=== PATIENT | female | born 1940 | race Caucasian/White ===

== ENCOUNTER 2016-09-22 09:55 | Outpatient (CLI) | payer OTHER ==
[2015-06-02 00:17] VITALS: BP 155/72
== END 2016-09-22 10:05 ==
LOC: RAD 09:55
PROVIDERS: ATTEND Family Medicine
DX: M81.0 Age-related osteoporosis without current pathological fracture (principal)
CPT/HCPCS: 77080

== ENCOUNTER 2016-11-24 14:02 | Outpatient (CLI) | payer OTHER ==
[2015-06-02 00:17] VITALS: BP 155/72
[2016-11-24 14:54] LABS: eGFR (African) > 60; eGFR (Non-African) > 60
== END 2016-11-24 14:03 ==
LOC: LAB 14:02
PROVIDERS: ATTEND Family Medicine
DX: E11.9 Type 2 diabetes mellitus without complications (principal)
CPT/HCPCS: 36415; 80053; 83036

== ENCOUNTER 2017-03-24 14:05 | Outpatient (CLI) | payer OTHER ==
[2015-06-02 00:17] VITALS: BP 155/72
[2017-03-24 14:31] LABS: eGFR (African) > 60; eGFR (Non-African) > 60
== END 2017-03-24 14:06 ==
LOC: LABRHC 14:05
PROVIDERS: ATTEND Family Medicine
DX: E11.9 Type 2 diabetes mellitus without complications (principal)
CPT/HCPCS: 36415; 80053; 80061; 82043; 83036

== ENCOUNTER 2017-04-27 13:42 | Emergency (ER) | payer OTHER ==
[2017-04-27 14:09] LABS: BASOPHILS % 0.4 (0.0-1.5); EOSINOPHILS % 1.8 % (0.0-6.8); MEAN CORPUSCULAR HEMOGLOBIN 25.9 pg (28.0-34.0); MEAN CORPUSCULAR VOLUME 81.7 fl (80.0-100.0); MONOCYTES % 4.9 % (0.0-11.0); NEUTROPHILS # 7.8 # k/uL (1.4-7.7)
[2017-04-27 14:43] LABS: eGFR (African) > 60; eGFR (Non-African) > 60
[2017-04-27 14:53] LABS: APPEARANCE,URINE Slightly Cloudy (CLEAR); COLOR,URINE Yellow (YELLOW); OCCULT BLOOD,URINE Negative (NEGATIVE); PH URINE 5.5 (5.0 - 8.0); UROBILINOGEN URINE 0.2 Eu (0.2-1.0)
--- NOTE | 2017-04-27 15:17 | Diagnostic Imaging Report ---
EDMAR YOU (CHRISTINA) - ER [facility] [address] [facility].[address] [address] Report Submission Date: Apr 27, 2017 2:49:31 PM CDT Patient Study Name: ELLA DAVALOS Date: Apr 27, 2017 2:10:33 PM CDT Modality Type: CR Gender: F Description: CHEST : 40 Institution: [facility] Physician: EDMAR YOU (CHRISTINA) - ER Examination: PA and lateral chest. History: Evaluate lung tapia. Comparison exam: None provided. Findings: PA lateral chest demonstrate a normal cardiac silhouette. Minimal tortuosity of the thoracic aorta. Mild haziness in the retrocardiac/posterior sulci region. No effusion. No blunting of the costophrenic margins. Osseous structures are appropriate for age. Impression: Mild retrocardiac infiltrate. No effusion. Electronically signed on Apr 27, 2017 2:49:31 PM CDT by: Tom DAVILA
--- NOTE | 2017-04-27 15:18 | Diagnostic Imaging Report ---
EDMAR YOU (CHRISTINA) - ER [facility] [address] [facility] [address] [address] Report Submission Date: Apr 27, 2017 2:50:31 PM CDT Patient Study Name: ELLA DAVALOS Date: Apr 27, 2017 2:21:34 PM CDT Modality Type: CR Gender: F Description: SHOULDER : 40 Institution: [facility] Physician: EDMAR YOU (CHRISTINA) - ER Examination: Plain film shoulder History: Fall Comparison exams: None provided Findings: 3 views of the shoulder demonstrate normal cortical margins. No evidence for fracture or dislocation. Acromioclavicular joint degenerative changes. No soft tissue abnormality Impression: Acromioclavicular joint degenerative. No acute osseous process. Electronically signed on Apr 27, 2017 2:50:31 PM CDT by: Tom DAVILA
--- NOTE | 2017-04-27 15:31 | ED Physician Documentation ---
Fall - HISTORIAN Historian: patient - HPI Stated Complaint: left shoulder pain from fall and short of breath Chief Complaint: Fall Onset: other (last or Tuesday) Context: tripped r: moderate Associated Symptoms:: no loss of consciousness Location of Pain/Injury: L shoulder Injury to Right Extremity: none Injury to Left Extremity: shoulder Further Comments: yes (77 year old female patient presents with complaint of left shoulder pain, reports falling last or Tuesday. Also reports shortness of breath which started today with sinus drainage and congestion. Denies chest pain, N/V, dysuria.) - ROS CONST: no problems NEURO: denies: dizziness, anxiety, depression, other MS/SKIN/LYMPH: ankle swelling (1+). denies: weakness, numbness, neck pain, back pain, leg swelling, rash, other EYES/ENT: none CVS/RESP: shortness of breath (mild). denies: chest pain, palpitations GI/: denies: problems urinating, nausea, vomiting, other - PAST HX Past History: diabetes Type 2, other (A Fib on Eliquis, Parkinson's) Allergies/Adverse Reactions: Allergies Allergy/AdvReac Type Severity Reaction Status Date / Time No Known Allergies Allergy Verified 04/27/17 14:05 Home Medications: Ambulatory Orders Medication Instructions Recorded Carbidopa/Levodopa [Carbidopa-Levo 1 tab PO DAILY 02/15/15 25-100 mg Odt] Levofloxacin [Levaquin] 500 mg PO DAILY #7 tablet 04/27/17 - SOCIAL HX Smoking History: non-smoker - FAMILY HX Family History: none - VITAL SIGNS Vital Signs: Vital Signs Temp Pulse Resp BP Pulse Ox 99.0 F 76 20 114/69 86 L 04/27/17 13:43 04/27/17 15:13 04/27/17 13:43 04/27/17 13:43 04/27/17 15:13 - REVIEWED ASSESSMENTS Nursing Assessment Reviewed: Yes Vitals Reviewed: Yes Progress - Progress Progress: maxillary and ethmoid sinus tenderness with palpation. Erythema in bilateral turbinates; purulent drainage. ED Results Lab/Radiology - Lab Results Lab Results: Lab Results 04/27/17 04/27/17 04/27/17 14:50 14:00 14:00 WBC RBC Hgb Hct MCV MCH MCHC RDW Plt Count Neut % (Auto) Lymph % (Auto) Holt % (Auto) Eos % (Auto) Baso % (Auto) Neut # (Auto) Lymph # (Auto) Holt # (Auto) Eos # (Auto) Baso # (Auto) Reactive Lymphs % Reactive Lymphs # Sodium 141 mmol/L mmol/L (136-145) Potassium 3.4 mmol/L L mmol/L (3.5-5.0) Chloride 103 mmol/L mmol/L (98-110) Carbon Dioxide 30 mmol/L mmol/L (20-32) BUN 29 mg/dL H mg/dL (10-26) Creatinine 0.7 mg/dL mg/dL (0.4-1.5) Estimated Creat Clear 91 Est GFR ( Amer) > 60 (60 - ) Est GFR (Non-Af Amer) > 60 (60 - ) Glucose 183 mg/dL H mg/dL (70-99) Calcium 9.9 mg/dL mg/dL (8.5-10.5) Total Bilirubin 0.4 mg/dL mg/dL (0.2-1.2) AST 14 U/L U/L (0-41) ALT 6 U/L U/L (0-45) Alkaline Phosphatase 94 U/L U/L (46-116) NT-Pro-B Natriuret Pep 710.1 pg/mL H pg/mL (15.0-450.0) Total Protein 7.2 g/dL g/dL (6.0-8.5) Albumin 4.3 g/dL g/dL (3.0-5.5) Urine Color Yellow (YELLOW) Urine Appearance Slightly cloudy (CLEAR) Urine pH 5.5 (5.0 - 8.0) Ur Specific [place] 1.025 (1.010-1.030) Urine Protein Negative mg/dL mg/dL (NEGATIVE) Urine Ketones Trace mg/dL mg/dL (NEGATIVE) Urine Occult Blood Negative (NEGATIVE) Urine Nitrite Negative (NEGATIVE) Urine Bilirubin Negative (NEGATIVE) Urine Urobilinogen 0.2 Eu Eu (0.2-1.0) Ur Leukocyte Esterase Negative (NEGATIVE) Urine Glucose Negative mg/dL mg/dL (NEGATIVE) 04/27/17 14:00 WBC 10.00 K/ul K/ul (4.00-12.00) RBC 5.63 M/ul H M/ul (3.90-5.20) Hgb 14.6 g/dL g/dL (12.0-16.0) Hct 46.0 % % (34.5-46.5) MCV 81.7 fl fl (80.0-100.0) MCH 25.9 pg L pg (28.0-34.0) MCHC 31.7 g/dL g/dL (30.0-36.0) RDW 16.2 % H % (11.3-14.3) Plt Count 261 K/mm3 K/mm3 (130-400) Neut % (Auto) 77.8 % % (39.0-79.0) Lymph % (Auto) 13.7 % L % (16.0-50.0) Holt % (Auto) 4.9 % % (0.0-11.0) Eos % (Auto) 1.8 % % (0.0-6.8) Baso % (Auto) 0.4 (0.0-1.5) Neut # (Auto) 7.8 # k/uL H # k/uL (1.4-7.7) Lymph # (Auto) 1.4 # k/uL # k/uL (0.6-4.0) Holt # (Auto) 0.5 # k/uL # k/uL (0.0-0.9) Eos # (Auto) 0.2 # k/uL # k/uL (0.0-0.6) Baso # (Auto) 0.0 # k/uL # k/uL (0.0-0.5) Reactive Lymphs % 1.4 % % (0.0-5.0) Reactive Lymphs # 0.1 # k/uL # k/uL (0.0-0.8) Sodium Potassium Chloride Carbon Dioxide BUN Creatinine Estimated Creat Clear Est GFR ( Amer) Est GFR (Non-Af Amer) Glucose Calcium Total Bilirubin AST ALT Alkaline Phosphatase NT-Pro-B Natriuret Pep Total Protein Albumin Urine Color Urine Appearance Urine pH Ur Specific [place] Urine Protein Urine Ketones Urine Occult Blood Urine Nitrite Urine Bilirubin Urine Urobilinogen Ur Leukocyte Esterase Urine Glucose - Orders Orders: ED Orders Category Date Time Status Continuous EKG monitoring Q30M Care 04/27/17 13:58 Active Continuous Pulse Oximetry Q30M Care 04/27/17 13:58 Active CHEST 2 VIEW [CHEST P.A.&LAT 2 VIEWS] [RAD] Stat Exams 04/27/17 Completed SHOULDER 2 VIEWS OR MORE [RAD] Stat Exams 04/27/17 Completed BNP [NT-proBNP] Stat Lab 04/27/17 14:00 Completed CBC/PLATELET/DIFF Stat Lab 04/27/17 14:00 Completed CMP Stat Lab 04/27/17 14:00 Completed UA W/MICRO IF INDICATED Stat Lab 04/27/17 14:50 Completed Fall Physical Exam - Physical Exam General Appearance: mild distress Head: non-tender, no swelling, no obvious injury Eye: DALILA, EOMI, lids & conjunct. nml ENT: nml external inspection Resp/CVS: chest non-tender, no ecchymosis, breath sounds nml, no resp. distress , heart sounds nml Abdomen: soft, no organomegaly, normal bowel sounds, no abdominal bruit, no distension Neuro: oriented x3, CN's nml as tested, sensation nml, motor nml, mood/affect nml, bariatric coordinator nml, reflexes nml, bariatric coordinator symmetrical Skin: color nml, no rash, nml palp., dry Extremities: atraumatic, pelvis stable, hips non-tender, nml ROM, nml color/temp , other (1+ bilateral edema) Discharge Clincal Impression: Fall Qualifiers: Encounter type: initial encounter Qualified Code(s): W19.XXXA - Unspecified fall, initial encounter Sinusitis Qualifiers: Sinusitis location: maxillary Chronicity: acute Recurrence: non-recurrent Qualified Code(s): J01.00 - Acute maxillary sinusitis, unspecified Ethmoid sinusitis Qualifiers: Chronicity: acute Recurrence: non-recurrent Qualified Code(s): J01.20 - Acute ethmoidal sinusitis, unspecified Prescriptions: Levofloxacin [Levaquin] 500 mg PO DAILY #7 tablet Referrals: Azalia Hernandez MD [Primary Care Provider] - 2 Days Home Medications: Ambulatory Orders Carbidopa/Levodopa [Carbidopa-Levo 25-100 mg Odt] 1 tab PO DAILY 02/15/15 Levofloxacin [Levaquin] 500 mg PO DAILY #7 tablet 04/27/17 Condition: Stable Disposition: 01 HOME, SELF-CARE Decision to Admit: NO Decision Time: 15:50
[2017-04-27 15:55] VITALS: BP 114/64
== END 2017-04-27 15:53 | disposition home or self-care (01) ==
LOC: ED 13:42
DX: J01.00 Acute maxillary sinusitis, unspecified (principal); J01.20 Acute ethmoidal sinusitis, unspecified; M25.512 Pain in left shoulder; W19.XXXA Unspecified fall, initial encounter; Y93.9 Activity, unspecified; Y99.9 Unspecified external cause status
CPT/HCPCS: 71020; 73030; 80053; 81002; 83880; 85025; 99283; S1016

== ENCOUNTER 2017-08-08 16:26 | Outpatient (CLI) | payer OTHER ==
[2017-08-08 17:20] LABS: BASOPHILS % 0.4 (0.0-1.5); EOSINOPHILS % 2.4 % (0.0-6.8); MEAN CORPUSCULAR HEMOGLOBIN 27.5 pg (28.0-34.0); MEAN CORPUSCULAR VOLUME 85.8 fl (80.0-100.0); MONOCYTES % 4.7 % (0.0-11.0); NEUTROPHILS # 6.9 # k/uL (1.4-7.7)
[2017-08-08 17:43] LABS: eGFR (African) > 60; eGFR (Non-African) > 60
== END 2017-08-08 16:30 ==
LOC: LAB 16:26
PROVIDERS: ATTEND Family Medicine
DX: E11.9 Type 2 diabetes mellitus without complications (principal); E78.00 Pure hypercholesterolemia, unspecified; I10 Essential (primary) hypertension; I25.10 Atherosclerotic heart disease of native coronary artery without angina pectoris; I48.1 Persistent atrial fibrillation
CPT/HCPCS: 36415; 80053; 80061; 83036; 84443; 85025

== ENCOUNTER 2017-10-31 04:09 | Emergency (ER) | payer OTHER ==
--- NOTE | 2017-10-31 04:40 | ED Physician Documentation ---
General Adult - HISTORIAN Historian: patient, spouse, paramedics - HPI Stated Complaint: anxiety Chief Complaint: General Adult Additional Information: EMS brought pt to ER for "social service visit." She took hydroxyzine at midnight for anxiety. This helped. She took another hydroxyzine just before transport to ER, and this did not help. She says she does not feel anxious now, but is very tired and wants to sleep. [place]tar any pain, and specifically denies CP. Told RN that her told her he was getting her up and out of here. She wants to know if she can sleep in the ER for a while. doesn't want EMS to have to assist her into the house. He walks with a cane and cannot transfer or carry her to the toilet. They both want to know when the hydroxyzine will wear off. says her arms are moving more since she took the hydroxyzine. HHusband and patient want to know if she can stay in the ER and sleep for a while. She says she can atypically ambulate to bathroom at home , but she is too tired to do so in the ER. No other modifying factors or associated signs. - ROS CONST: no problems - PAST HX Past History: other (Parkinsons RLS, NIDDM) Allergies/Adverse Reactions: Allergies Allergy/AdvReac Type Severity Reaction Status Date / Time No Known Allergies Allergy Verified 10/31/17 04:30 Home Medications: Ambulatory Orders Medication Instructions Recorded Carbidopa/Levodopa [Carbidopa-Levo 1 tab PO DAILY 02/15/15 25-100 mg Odt] - SOCIAL HX Smoking History: non-smoker - FAMILY HX Family History: No (no significant) - VITAL SIGNS Vital Signs: Vital Signs Temp Pulse Resp BP Pulse Ox 114/64 04/27/17 15:53 - REVIEWED ASSESSMENTS Nursing Assessment Reviewed: Yes Vitals Reviewed: Yes Progress - Progress Progress: 05, ER stretcher is too uncomfortable and she cannot sleep. Called and asked him if she might come home. Nurse called and he is now agreeable to ambulance transport for pt to home. ED Results Lab/Radiology - Orders Orders: ED Orders Category Date Time Status UA [URINALYSIS] Routine Lab 10/31/17 Ordered General Adult Physical Exam - PHYSICAL EXAM GENERAL APPEARANCE: no distress EENT: eye inspection normal, ENT inspection normal, pharynx normal NECK: supple RESPIRATORY: no resp distress, breath sounds normal CVS: reg rate & rhythm, heart sounds normal, no murmur ABDOMEN: soft, normal bowel sounds, non-tender BACK: normal inspection, no CVA tenderness SKIN: warm/dry, normal color EXTREMITIES: non-tender, no evidence of injury NEURO: oriented X3, CN's nml as tested, motor nml, sensation nml, other (no asymmetry. Reflexes 2+ throughout. Can dorsiflex 1st toes against resistance. ) Discharge Clincal Impression: Anxiety Referrals: Azalia Hernandez MD [Primary Care Provider] - 2 Days Additional Instructions: Follow up with Dr. Hernandez. Return to the ER if your condition worsens. Condition: Good Disposition: 01 HOME, SELF-CARE Decision to Admit: NO Decision Time: 05:20
[2017-10-31 06:15] VITALS: BP 139/87
[2017-10-31 06:50] LABS: APPEARANCE,URINE CLEAR (CLEAR); COLOR,URINE YELLOW (YELLOW)
[2017-10-31 06:51] LABS: OCCULT BLOOD,URINE TRACE-INTACT (NEGATIVE); PH URINE 6.5 (5.0 - 8.0)
== END 2017-10-31 06:10 | disposition home or self-care (01) ==
LOC: ED 04:09
DX: F41.9 Anxiety disorder, unspecified (principal)
CPT/HCPCS: 81002; 99282

== ENCOUNTER 2017-11-04 15:12 | Inpatient (IN) | payer OTHER ==
[2017-11-04 15:39] VITALS: BMI 25.4
--- NOTE | 2017-11-04 16:12 | History and Physical Report ---
History of Present Illnes - History of Present Illness Reason for Visit: Weakness History of Present Illness: Patient was admitted to [facility] earlier this week with worsening Parkinson's. She had gotten to the point where she was unable to walk on her own. Work up at [facility] was negative. Neurology believed she had gotten her medication mixed up. She is on sinemet 5 times a day - they feel she is getting some early dementia and is unable to remember to take her meds. However, they did not change this. She had issues with poor sleep while there - up every night until last night when she slept great. New medication includes seroquel at night. She did have an episode of edema - thought to have some fluid overload - treated with lasix. She feels good today. reports she is doing much better. He is unable to help her at home due to his chronic health condition. She will be admitted for SNF for PT/OT to strengthen her to get her back home. I will also ask speech to see her to work on cognitive training. - Past Medical History Cardiac: AFIB, CAD, HTN, Hyperlipidemia APPRAISAL SPECIALIST: TIA, Other (Parkinson's) Gastrointestinal: GERD, Irritable bowel disease Psych: Anxiety Musculoskeletal: Chronic low back pain (Degenerative disease with stenosis), Osteoarthritis, Other (Osteoporosis) ENT: Allergic rhinitis, Other (Glaucoma) Endocrine: Diabetes - Past Surgical History Past Surgical History: Hysterectomy, Other (L knee arthroscopy) - Past Social History Smoke: No Occupation: Retired teacher Alcohol: None Drugs: None Lives: With Family ( Suhas) Domestic Violence: Negative - Health Maintenance Health Maintenance: Cholesterol, Influenza Vaccine, Pneumococcal Vaccine, Mammogram, Colonoscopy, DEXA Influenza Vaccine: Current for this Influenza Season Pneumonia Vaccine: Yes Resuscitation Status: Resusciation Status Resuscitation Status Full Code Review of Systems - Review of Systems Constitutional: Weakness. negative: Fever Eyes: vision change (Since eye exam 3 weeks ago, when gets in bright light, sees yellow). negative: pain ENT: Nose Congestion. negative: Ear Pain Respiratory: negative: Cough, Shortness of Breath Cardiovascular: negative: Chest Pain Gastrointestinal: negative: Nausea, Vomiting, Abdominal Pain Genitourinary: negative: Dysuria Musculoskeletal: negative: Neck Pain Skin: negative: Rash Neurological: Weakness - Medications/Allergies Allergies/Adverse Reactions: Allergies Allergy/AdvReac Type Severity Reaction Status Date / Time Yegcjch-[id number]-Dqf Reductase Allergy Verified 11/04/17 19:37 Inhibitor Home Medications: Home Medications Acetaminophen [Tylenol] 650 mg PO Q4 PRN 11/04/17 Blood-Glucose Calib. Control [Accu-Chek] 1 each ACHS 11/04/17 Cholecalciferol [Vitamin D-3] 1,000 unit PO DAILY 11/04/17 Cyanocobalamin (Vitamin B-12) [Vitamin B-12] 500 mcg PO DAILY 11/04/17 Fluticasone Propionate [Flonase Nasal [place]] 1 spray NS DAILY PRN 11/04/17 [place]-3S/Dha/Epa/Fish Oil [[place]-3 Fish Oil 1,000 mg Sfgl] 1 each PO DAILY 11/04 QUEtiapine FUMARATE [Seroquel] 12.5 mg PO HS PRN 11/04/17 Sennosides/Docusate Sodium [Senna-Docusate Sodium Tablet] 1 each PO BID Exam - Exam Vital Signs: Vital Signs (72 hours) 11/04/17 11/04/17 15:15 15:27 Temperature 98.1 F 98.1 F Pulse Rate [ 72 72 Left] Respiratory 20 20 Rate Blood Pressure 141/71 141/71 [Left Arm] O2 Sat by Pulse 92 92 Oximetry General: Alert, Oriented to Person, Oriented to Place, Oriented to Time, Cooperative, No acute distress HEENT: Atraumatic, PERRLA, EOMI, Mouth Mucous membr. moist/[place], Nose Mucous membr. moist/[place] Neck: Normal Range of Motion Lungs: Clear to auscultation, Normal air movement, Speaks full Sentences Cardiovascular: Regular rate, Irregularly Irregular Abdomen: Normal bowel sounds, Soft, No tenderness Integumentary: Normal Extremities: No clubbing, No cyanosis. No: No edema (Trace) Neurological: Normal speech, Strength Equal Bilat, Generalized Weakness, Other ( shuffled gait) Psych/Mental Status: Mental status NL, Mood NL, Appropriate Affect, Intact Judgment Assessment/Plan - Assessment/Plan (1) Weakness Status: Acute Current Visit: Yes Plan: Admit to SNF for PT/OT eval and treat. Will get speech consult for possible early cognitive decline per neurology. (2) Parkinson disease Status: Acute Current Visit: Yes Plan: Continus sinemet and requip. (3) Afib Status: Acute Current Visit: Yes Plan: Continue eliquis and metoprolol. 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 GFR is >60 - will restart metformin. Monitor BS. (5) Hypertension Status: Acute Current Visit: No Qualifiers: Hypertension type: essential hypertension Qualified Code(s): I10 - Essential (primary) hypertension Plan: Stable. Watch. VTE Assessment - RISK FACTOR SCORE VTE RISK FACTOR SCORES: AGE OVER 60 YEARS - RISK VTE LOW RISK: SCORE OF 1 OR LESS (RISK PROXIMAL DVT 0.4%) NO PROPHYLAXIS NEEDED
[2017-11-04] MEDS ORDERED: BUSPIRONE HCL 5 MG TABLET PO SCH (17:00)
[2017-11-04] MEDS ORDERED: LEVODOPA PO SCH (18:00)
[2017-11-04] MEDS ORDERED: ROPINIROLE HCL 0.25 MG PO SCH (18:00)
[2017-11-04] MEDS ORDERED: CARBIDOPA PO SCH (18:00)
[2017-11-04] MEDS: APIXABAN 2.5 MG TABLET PO SCH ×2 (18:30→20:31)
[2017-11-04] MEDS: rOPINIRole HCL 1 MG TABLET PO SCH (18:31)
[2017-11-04] MEDS: HYPROMELLOSE OPTH DROPS OP SCH ×2 (18:50→20:35)
[2017-11-04] MEDS: ACETAMINOPHEN 325 MG TABLET PO PRN (18:56)
[2017-11-04] MEDS: SENNOSIDES/DOCUSATE SODIUM 1 EACH TABLET PO SCH (20:34)
[2017-11-04] MEDS: METOPROLOL TARTRATE 50 MG TABLET PO SCH (20:35)
[2017-11-04] MEDS ORDERED: APIXABAN 5 MG PO SCH (21:00)
[2017-11-05] MEDS: FLUTICASONE PROPIONATE 120 SPRAY/16 GR BOTTLE NS PRN (05:33)
[2017-11-05] MEDS ORDERED: SERTRALINE HCL 25 MG PO SCH (09:00)
[2017-11-05] MEDS ORDERED: LATANOPROST 0.005% OPTH DROP OP SCH (09:00)
[2017-11-05] MEDS ORDERED: LOSARTAN PO SCH (09:00)
[2017-11-05] MEDS ORDERED: HYDROCHLOROTHIAZIDE PO SCH (09:00)
[2017-11-05] MEDS ORDERED: CYANOCOBALAMIN 500 MCG PO SCH (09:00)
[2017-11-05] MEDS: ACETAMINOPHEN 325 MG TABLET PO PRN ×2 (10:24→16:38)
[2017-11-05] MEDS: rOPINIRole HCL 1 MG TABLET PO SCH ×3 (10:25→17:50)
[2017-11-05] MEDS: CYANOCOBALAMIN (VITAMIN B12) 1,000 MCG TABLET PO SCH (10:26)
[2017-11-05] MEDS: METOPROLOL TARTRATE 50 MG TABLET PO SCH ×2 (10:27→20:24)
[2017-11-05] MEDS: SENNOSIDES/DOCUSATE SODIUM 1 EACH TABLET PO SCH ×2 (10:28→20:24)
[2017-11-05] MEDS: APIXABAN 2.5 MG TABLET PO SCH ×2 (10:29→20:24)
[2017-11-05] MEDS: SERTRALINE HCL 50 MG TABLET PO SCH (10:31)
[2017-11-05] MEDS: LOSARTAN POTASSIUM 50 MG TABLET PO SCH (10:32)
[2017-11-05] MEDS: LATANOPROST 0.005% OPTH DROP OP SCH (10:32)
[2017-11-05] MEDS: CHOLECALCIFEROL (VIT D3) 1,000 UNIT TABLET PO SCH (10:32)
[2017-11-05] MEDS: HYDROCHLOROTHIAZIDE 25 MG TABLET PO SCH (10:32)
[2017-11-05] MEDS: HYPROMELLOSE OPTH DROPS OP SCH ×2 (10:33→20:25)
[2017-11-05] MEDS: QUEtiapine FUMARATE 25 MG TABLET PO PRN (22:43)
[2017-11-06] MEDS: LOSARTAN POTASSIUM 50 MG TABLET PO SCH (08:26)
[2017-11-06] MEDS: APIXABAN 2.5 MG TABLET PO SCH ×2 (08:26→20:42)
[2017-11-06] MEDS: HYDROCHLOROTHIAZIDE 25 MG TABLET PO SCH (08:27)
[2017-11-06] MEDS: CYANOCOBALAMIN (VITAMIN B12) 1,000 MCG TABLET PO SCH (08:28)
[2017-11-06] MEDS: rOPINIRole HCL 1 MG TABLET PO SCH ×3 (08:28→17:04)
[2017-11-06] MEDS: METOPROLOL TARTRATE 50 MG TABLET PO SCH ×2 (08:28→20:44)
[2017-11-06] MEDS: SENNOSIDES/DOCUSATE SODIUM 1 EACH TABLET PO SCH ×2 (08:28→20:44)
[2017-11-06] MEDS: CHOLECALCIFEROL (VIT D3) 1,000 UNIT TABLET PO SCH (08:29)
[2017-11-06] MEDS: SERTRALINE HCL 50 MG TABLET PO SCH (08:30)
[2017-11-06] MEDS: HYPROMELLOSE OPTH DROPS OP SCH ×2 (08:31→20:43)
[2017-11-06] MEDS: LATANOPROST 0.005% OPTH DROP OP SCH (08:32)
[2017-11-06] MEDS: FLUTICASONE PROPIONATE 120 SPRAY/16 GR BOTTLE NS PRN (12:19)
[2017-11-07] MEDS ORDERED: PHARMACY KEY 1 EACH EACH MC ONE (00:34)
[2017-11-07] MEDS ORDERED: predniSONE 20 MG TABLET PO ONE (00:40)
[2017-11-07] MEDS ORDERED: IPRATROPIUM/ALBUTEROL SULFATE 3 ML AMPUL.NEB NEB ONE (00:40)
[2017-11-07] MEDS ORDERED: buPROPion 150 MG TABLET.ER PO ONE (00:40)
[2017-11-07] MEDS ORDERED: LITHIUM CARBONATE 300 MG CAPSULE PO ONE (00:41)
[2017-11-07] MEDS: QUEtiapine FUMARATE 25 MG TABLET PO PRN ×2 (01:00→22:07)
[2017-11-07] MEDS: ACETAMINOPHEN 325 MG TABLET PO PRN (02:03)
[2017-11-07] MEDS: HYDROCHLOROTHIAZIDE 25 MG TABLET PO SCH (08:55)
[2017-11-07] MEDS: APIXABAN 2.5 MG TABLET PO SCH ×2 (08:55→20:27)
[2017-11-07] MEDS: METOPROLOL TARTRATE 50 MG TABLET PO SCH ×2 (08:56→20:28)
[2017-11-07] MEDS: rOPINIRole HCL 1 MG TABLET PO SCH ×3 (08:56→17:44)
[2017-11-07] MEDS: HYPROMELLOSE OPTH DROPS OP SCH ×2 (08:56→22:21)
[2017-11-07] MEDS: CYANOCOBALAMIN (VITAMIN B12) 1,000 MCG TABLET PO SCH (08:57)
[2017-11-07] MEDS: SENNOSIDES/DOCUSATE SODIUM 1 EACH TABLET PO SCH ×2 (08:57→20:28)
[2017-11-07] MEDS: LATANOPROST 0.005% OPTH DROP OP SCH ×2 (08:58→20:27)
[2017-11-07] MEDS: SERTRALINE HCL 50 MG TABLET PO SCH (09:01)
[2017-11-07] MEDS: CHOLECALCIFEROL (VIT D3) 1,000 UNIT TABLET PO SCH (09:05)
[2017-11-07] MEDS: LOSARTAN POTASSIUM 50 MG TABLET PO SCH (09:05)
[2017-11-07] MEDS: FLUTICASONE PROPIONATE 120 SPRAY/16 GR BOTTLE NS PRN (11:36)
--- NOTE | 2017-11-07 11:39 | Inpatient Progress Note ---
Subjective - Required Recertification Statement I anticipate X number of days because-include discharge plan: 7 - Review of Systems Subjective: Doing ok. A little insomnia. Also some nasal congestion. Objective - Exam Vitals and I&O: Vital Signs Temp 97.2 F L 11/07/17 09:00 Pulse 82 11/07/17 09:00 Resp 20 11/07/17 09:00 BP 142/86 11/07/17 09:00 Pulse Ox 95 11/07/17 09:00 Intake & Output 11/06/17 11/06/17 11/07/17 11:59 23:59 11:59 Intake Total 1040 480 Balance 1040 480 Weight 71.214 kg Intake: Oral 1040 480 Other: Voiding Method Toilet Toilet # Voids 2 2 # Bowel Movements General: Alert, Oriented to Person, Oriented to Place, Oriented to Time, Cooperative, No acute distress Lungs: Clear to auscultation, Normal air movement, Speaks full Sentences Cardiovascular: Regular rate Assessment/Plan - Assessment/Plan (1) Weakness Status: Acute Current Visit: Yes Plan: Continue PT/OT. (2) Parkinson disease Status: Acute Current Visit: Yes (3) Afib Status: Acute Current Visit: Yes (4) Diabetes Status: Acute Current Visit: Yes Qualifiers: Diabetes mellitus type: type 2 Diabetes mellitus complication status: without complication Diabetes mellitus usp insulin use: without rat exterminator use Qualified Code(s): E11.9 - Type 2 diabetes mellitus without complications (5) Hypertension Status: Acute Current Visit: No Qualifiers: Hypertension type: essential hypertension Qualified Code(s): I10 - Essential (primary) hypertension (6) Chronic nasal congestion Status: Acute Current Visit: Yes Plan: Change flonase to scheduled. Patient instructed on proper use. (7) Insomnia Status: Acute Current Visit: Yes Qualifiers: Insomnia type: unspecified Qualified Code(s): G47.00 - Insomnia, unspecified Plan: Will add melatonin prn.
[2017-11-08] MEDS: BUSPIRONE HCL 5 MG TABLET PO PRN ×2 (04:34→21:05)
[2017-11-08] MEDS: FLUTICASONE PROPIONATE 120 SPRAY/16 GR BOTTLE NS SCH (08:43)
[2017-11-08] MEDS: APIXABAN 2.5 MG TABLET PO SCH ×2 (08:43→20:07)
[2017-11-08] MEDS: HYDROCHLOROTHIAZIDE 25 MG TABLET PO SCH (08:44)
[2017-11-08] MEDS: LOSARTAN POTASSIUM 50 MG TABLET PO SCH (08:44)
[2017-11-08] MEDS: HYPROMELLOSE OPTH DROPS OP SCH ×2 (08:46→20:07)
[2017-11-08] MEDS: METOPROLOL TARTRATE 50 MG TABLET PO SCH ×2 (08:46→20:06)
[2017-11-08] MEDS: rOPINIRole HCL 1 MG TABLET PO SCH ×3 (08:46→17:25)
[2017-11-08] MEDS: SENNOSIDES/DOCUSATE SODIUM 1 EACH TABLET PO SCH ×2 (08:47→20:06)
[2017-11-08] MEDS: CYANOCOBALAMIN (VITAMIN B12) 1,000 MCG TABLET PO SCH (08:47)
[2017-11-08] MEDS: CHOLECALCIFEROL (VIT D3) 1,000 UNIT TABLET PO SCH (08:47)
[2017-11-08] MEDS: SERTRALINE HCL 50 MG TABLET PO SCH (08:47)
[2017-11-08] MEDS: LATANOPROST 0.005% OPTH DROP OP SCH (20:11)
[2017-11-08] MEDS: MELATONIN 3 MG TABLET PO PRN (21:05)
[2017-11-08] MEDS: QUEtiapine FUMARATE 25 MG TABLET PO PRN (21:05)
[2017-11-09] MEDS: ACETAMINOPHEN 325 MG TABLET PO PRN (08:18)
[2017-11-09] MEDS: METOPROLOL TARTRATE 50 MG TABLET PO SCH ×2 (08:19→19:50)
[2017-11-09] MEDS: HYDROCHLOROTHIAZIDE 25 MG TABLET PO SCH (08:19)
[2017-11-09] MEDS: CYANOCOBALAMIN (VITAMIN B12) 1,000 MCG TABLET PO SCH (08:20)
[2017-11-09] MEDS: SENNOSIDES/DOCUSATE SODIUM 1 EACH TABLET PO SCH ×2 (08:20→19:51)
[2017-11-09] MEDS: FLUTICASONE PROPIONATE 120 SPRAY/16 GR BOTTLE NS SCH (08:21)
[2017-11-09] MEDS: SERTRALINE HCL 50 MG TABLET PO SCH (08:22)
[2017-11-09] MEDS: APIXABAN 2.5 MG TABLET PO SCH ×2 (08:22→19:50)
[2017-11-09] MEDS: rOPINIRole HCL 1 MG TABLET PO SCH ×3 (08:23→17:45)
[2017-11-09] MEDS: HYPROMELLOSE OPTH DROPS OP SCH ×2 (08:24→19:47)
[2017-11-09] MEDS: CHOLECALCIFEROL (VIT D3) 1,000 UNIT TABLET PO SCH (08:25)
[2017-11-09] MEDS: LOSARTAN POTASSIUM 50 MG TABLET PO SCH (08:25)
[2017-11-09] MEDS: LATANOPROST 0.005% OPTH DROP OP SCH (19:47)
[2017-11-09] MEDS: BUSPIRONE HCL 5 MG TABLET PO PRN (19:52)
[2017-11-09] MEDS: MELATONIN 3 MG TABLET PO PRN (19:52)
[2017-11-09] MEDS: QUEtiapine FUMARATE 25 MG TABLET PO PRN (21:32)
[2017-11-10] MEDS: CYANOCOBALAMIN (VITAMIN B12) 1,000 MCG TABLET PO SCH (08:59)
[2017-11-10] MEDS: HYDROCHLOROTHIAZIDE 25 MG TABLET PO SCH (09:00)
[2017-11-10] MEDS: SENNOSIDES/DOCUSATE SODIUM 1 EACH TABLET PO SCH ×2 (09:00→21:03)
[2017-11-10] MEDS: SERTRALINE HCL 50 MG TABLET PO SCH (09:00)
[2017-11-10] MEDS: METOPROLOL TARTRATE 50 MG TABLET PO SCH ×2 (09:00→21:03)
[2017-11-10] MEDS: CHOLECALCIFEROL (VIT D3) 1,000 UNIT TABLET PO SCH (09:00)
[2017-11-10] MEDS: rOPINIRole HCL 1 MG TABLET PO SCH ×3 (09:00→17:48)
[2017-11-10] MEDS: HYPROMELLOSE OPTH DROPS OP SCH ×2 (09:01→21:04)
[2017-11-10] MEDS: APIXABAN 2.5 MG TABLET PO SCH ×2 (09:01→21:04)
[2017-11-10] MEDS: FLUTICASONE PROPIONATE 120 SPRAY/16 GR BOTTLE NS SCH (09:01)
[2017-11-10] MEDS: LOSARTAN POTASSIUM 50 MG TABLET PO SCH (09:05)
[2017-11-10] MEDS: SODIUM CHLORIDE NASAL SPRAY NS SCH ×4 (11:07→21:22)
[2017-11-10] MEDS: MELATONIN 3 MG TABLET PO PRN (21:07)
[2017-11-10] MEDS: LATANOPROST 0.005% OPTH DROP OP SCH (21:22)
[2017-11-10] MEDS: QUEtiapine FUMARATE 25 MG TABLET PO PRN (22:01)
[2017-11-11] MEDS: LOSARTAN POTASSIUM 50 MG TABLET PO SCH (10:51)
[2017-11-11] MEDS: SERTRALINE HCL 50 MG TABLET PO SCH (10:54)
[2017-11-11] MEDS: CHOLECALCIFEROL (VIT D3) 1,000 UNIT TABLET PO SCH (10:54)
[2017-11-11] MEDS: METOPROLOL TARTRATE 50 MG TABLET PO SCH ×2 (10:54→21:13)
[2017-11-11] MEDS: FLUTICASONE PROPIONATE 120 SPRAY/16 GR BOTTLE NS SCH (10:55)
[2017-11-11] MEDS: SENNOSIDES/DOCUSATE SODIUM 1 EACH TABLET PO SCH ×2 (10:55→21:13)
[2017-11-11] MEDS: rOPINIRole HCL 1 MG TABLET PO SCH ×3 (10:56→18:01)
[2017-11-11] MEDS: CYANOCOBALAMIN (VITAMIN B12) 1,000 MCG TABLET PO SCH (10:56)
[2017-11-11] MEDS: HYDROCHLOROTHIAZIDE 25 MG TABLET PO SCH (10:57)
[2017-11-11] MEDS: APIXABAN 2.5 MG TABLET PO SCH ×2 (10:58→21:13)
[2017-11-11] MEDS: HYPROMELLOSE OPTH DROPS OP SCH ×2 (10:58→21:14)
[2017-11-11] MEDS: SODIUM CHLORIDE NASAL SPRAY NS SCH ×4 (10:59→21:13)
[2017-11-11] MEDS: BUSPIRONE HCL 5 MG TABLET PO PRN ×2 (12:32→21:13)
[2017-11-11] MEDS: MELATONIN 3 MG TABLET PO PRN (21:12)
[2017-11-11] MEDS: LATANOPROST 0.005% OPTH DROP OP SCH (21:13)
[2017-11-12] MEDS: QUEtiapine FUMARATE 25 MG TABLET PO PRN ×2 (03:24→20:03)
[2017-11-12] MEDS: FLUTICASONE PROPIONATE 120 SPRAY/16 GR BOTTLE NS SCH ×2 (09:20→19:58)
[2017-11-12] MEDS: HYDROCHLOROTHIAZIDE 25 MG TABLET PO SCH (09:20)
[2017-11-12] MEDS: APIXABAN 2.5 MG TABLET PO SCH ×2 (09:20→20:01)
[2017-11-12] MEDS: LOSARTAN POTASSIUM 50 MG TABLET PO SCH (09:20)
[2017-11-12] MEDS: HYPROMELLOSE OPTH DROPS OP SCH ×2 (09:21→19:58)
[2017-11-12] MEDS: rOPINIRole HCL 1 MG TABLET PO SCH ×3 (09:21→17:25)
[2017-11-12] MEDS: METOPROLOL TARTRATE 50 MG TABLET PO SCH ×2 (09:21→20:01)
[2017-11-12] MEDS: CYANOCOBALAMIN (VITAMIN B12) 1,000 MCG TABLET PO SCH (09:22)
[2017-11-12] MEDS: SENNOSIDES/DOCUSATE SODIUM 1 EACH TABLET PO SCH ×2 (09:22→20:02)
[2017-11-12] MEDS: SODIUM CHLORIDE NASAL SPRAY NS SCH ×4 (09:22→20:01)
[2017-11-12] MEDS: SERTRALINE HCL 50 MG TABLET PO SCH (09:23)
[2017-11-12] MEDS: CHOLECALCIFEROL (VIT D3) 1,000 UNIT TABLET PO SCH (09:23)
[2017-11-12] MEDS: ACETAMINOPHEN 325 MG TABLET PO PRN (11:40)
[2017-11-12] MEDS: LATANOPROST 0.005% OPTH DROP OP SCH (19:56)
[2017-11-12] MEDS: BUSPIRONE HCL 5 MG TABLET PO PRN (20:02)
[2017-11-12] MEDS: MELATONIN 3 MG TABLET PO PRN (20:03)
[2017-11-13] MEDS: BUSPIRONE HCL 5 MG TABLET PO PRN (06:14)
[2017-11-13] MEDS: HYDROCHLOROTHIAZIDE 25 MG TABLET PO SCH (09:30)
[2017-11-13] MEDS: APIXABAN 2.5 MG TABLET PO SCH ×2 (09:30→20:42)
[2017-11-13] MEDS: METOPROLOL TARTRATE 50 MG TABLET PO SCH ×2 (09:30→20:42)
[2017-11-13] MEDS: HYPROMELLOSE OPTH DROPS OP SCH ×2 (09:31→20:43)
[2017-11-13] MEDS: CYANOCOBALAMIN (VITAMIN B12) 1,000 MCG TABLET PO SCH (09:31)
[2017-11-13] MEDS: rOPINIRole HCL 1 MG TABLET PO SCH ×3 (09:31→17:48)
[2017-11-13] MEDS: SODIUM CHLORIDE NASAL SPRAY NS SCH ×4 (09:31→20:42)
[2017-11-13] MEDS: SENNOSIDES/DOCUSATE SODIUM 1 EACH TABLET PO SCH ×2 (09:32→20:43)
[2017-11-13] MEDS: CHOLECALCIFEROL (VIT D3) 1,000 UNIT TABLET PO SCH (09:32)
[2017-11-13] MEDS: SERTRALINE HCL 50 MG TABLET PO SCH (09:32)
[2017-11-13] MEDS: LOSARTAN POTASSIUM 50 MG TABLET PO SCH (09:34)
[2017-11-13] MEDS: ACETAMINOPHEN 325 MG TABLET PO PRN (18:53)
[2017-11-13] MEDS: LATANOPROST 0.005% OPTH DROP OP SCH (20:43)
[2017-11-13] MEDS: MELATONIN 3 MG TABLET PO PRN (22:49)
[2017-11-13] MEDS: QUEtiapine FUMARATE 25 MG TABLET PO PRN (22:49)
[2017-11-14] MEDS: ACETAMINOPHEN 325 MG TABLET PO PRN (09:16)
[2017-11-14] MEDS: LOSARTAN POTASSIUM 50 MG TABLET PO SCH (09:17)
[2017-11-14] MEDS: CHOLECALCIFEROL (VIT D3) 1,000 UNIT TABLET PO SCH (09:17)
[2017-11-14] MEDS: FLUTICASONE PROPIONATE 120 SPRAY/16 GR BOTTLE NS SCH (09:17)
[2017-11-14] MEDS: rOPINIRole HCL 1 MG TABLET PO SCH ×3 (09:18→17:28)
[2017-11-14] MEDS: SENNOSIDES/DOCUSATE SODIUM 1 EACH TABLET PO SCH ×2 (09:18→21:00)
[2017-11-14] MEDS: SERTRALINE HCL 50 MG TABLET PO SCH (09:19)
[2017-11-14] MEDS: APIXABAN 2.5 MG TABLET PO SCH ×2 (09:19→20:59)
[2017-11-14] MEDS: HYDROCHLOROTHIAZIDE 25 MG TABLET PO SCH (09:20)
[2017-11-14] MEDS: CYANOCOBALAMIN (VITAMIN B12) 1,000 MCG TABLET PO SCH (09:20)
[2017-11-14] MEDS: SODIUM CHLORIDE NASAL SPRAY NS SCH ×4 (09:21→21:13)
[2017-11-14] MEDS: HYPROMELLOSE OPTH DROPS OP SCH ×2 (09:21→21:13)
[2017-11-14] MEDS: METOPROLOL TARTRATE 50 MG TABLET PO SCH ×2 (09:21→20:59)
[2017-11-14] MEDS: BUSPIRONE HCL 5 MG TABLET PO PRN ×2 (13:44→21:09)
[2017-11-14] MEDS: MELATONIN 3 MG TABLET PO PRN (21:00)
[2017-11-14] MEDS: LATANOPROST 0.005% OPTH DROP OP SCH (21:11)
[2017-11-14] MEDS: QUEtiapine FUMARATE 25 MG TABLET PO PRN (22:45)
--- NOTE | 2017-11-15 07:59 | Inpatient Progress Note ---
Subjective - Required Recertification Statement I anticipate X number of days because-include discharge plan: 10 - Review of Systems Subjective: Patient doing ok. Yesterday was a rainy day - her sinus congestion gets so much worse on those days. Saline and flonase not helping. Uses pseudofed at home. Objective - Exam Vitals and I&O: Vital Signs Temp 97.1 F L 11/14/17 21:00 Pulse 81 11/14/17 21:00 Resp 14 11/14/17 21:00 BP 150/80 11/14/17 21:00 Pulse Ox 95 11/14/17 21:00 Intake & Output 11/14/17 11/14/17 11/15/17 11:59 23:59 11:59 Intake Total 240 1210 Output Total 0 Balance 240 1210 Weight 70.307 kg Intake: Oral 240 1210 Output: Urine 0 Other: Voiding Method Toilet Bedside Commode # Voids 4 1 # Bowel Movements 0 General: Alert, Oriented to Person, Oriented to Place, Oriented to Time, Cooperative Lungs: Clear to auscultation, Normal air movement, Speaks full Sentences Cardiovascular: Regular rate Assessment/Plan - Assessment/Plan (1) Weakness Status: Acute Current Visit: Yes (2) Parkinson disease Status: Acute Current Visit: Yes (3) Afib Status: Acute Current Visit: Yes (4) Diabetes Status: Acute Current Visit: Yes Qualifiers: Diabetes mellitus type: type 2 Diabetes mellitus complication status: without complication Diabetes mellitus local company intermodal truck driver insulin use: without snf use Qualified Code(s): E11.9 - Type 2 diabetes mellitus without complications (5) Hypertension Status: Acute Current Visit: No Qualifiers: Hypertension type: essential hypertension Qualified Code(s): I10 - Essential (primary) hypertension (6) Chronic nasal congestion Status: Acute Current Visit: Yes (7) Insomnia Status: Acute Current Visit: Yes Qualifiers: Insomnia type: unspecified Qualified Code(s): G47.00 - Insomnia, unspecified (8) Nasal congestion Status: Acute Current Visit: Yes Plan: Will try vicks nasal inhaler at bedside. to get this.
[2017-11-15] MEDS: LOSARTAN POTASSIUM 50 MG TABLET PO SCH (08:30)
[2017-11-15] MEDS: CHOLECALCIFEROL (VIT D3) 1,000 UNIT TABLET PO SCH (08:39)
[2017-11-15] MEDS: CYANOCOBALAMIN (VITAMIN B12) 1,000 MCG TABLET PO SCH (08:39)
[2017-11-15] MEDS: rOPINIRole HCL 1 MG TABLET PO SCH ×3 (08:40→18:37)
[2017-11-15] MEDS: SENNOSIDES/DOCUSATE SODIUM 1 EACH TABLET PO SCH ×2 (08:42→19:37)
[2017-11-15] MEDS: HYDROCHLOROTHIAZIDE 25 MG TABLET PO SCH (08:42)
[2017-11-15] MEDS: APIXABAN 2.5 MG TABLET PO SCH ×2 (08:42→19:36)
[2017-11-15] MEDS: FLUTICASONE PROPIONATE 120 SPRAY/16 GR BOTTLE NS SCH (08:43)
[2017-11-15] MEDS: METOPROLOL TARTRATE 50 MG TABLET PO SCH ×2 (08:44→19:36)
[2017-11-15] MEDS: SERTRALINE HCL 50 MG TABLET PO SCH (08:45)
[2017-11-15] MEDS: HYPROMELLOSE OPTH DROPS OP SCH ×2 (08:45→19:36)
[2017-11-15] MEDS: SODIUM CHLORIDE NASAL SPRAY NS SCH ×4 (08:45→19:37)
[2017-11-15] MEDS: ACETAMINOPHEN 325 MG TABLET PO PRN (08:48)
[2017-11-15] MEDS: BUSPIRONE HCL 5 MG TABLET PO PRN (22:16)
[2017-11-15] MEDS: MELATONIN 3 MG TABLET PO PRN (22:16)
[2017-11-15] MEDS: LATANOPROST 0.005% OPTH DROP OP SCH (22:59)
[2017-11-15] MEDS: QUEtiapine FUMARATE 25 MG TABLET PO PRN (23:46)
[2017-11-16] MEDS: SERTRALINE HCL 50 MG TABLET PO SCH (08:16)
[2017-11-16] MEDS: rOPINIRole HCL 1 MG TABLET PO SCH ×3 (08:16→17:38)
[2017-11-16] MEDS: HYDROCHLOROTHIAZIDE 25 MG TABLET PO SCH (08:17)
[2017-11-16] MEDS: CHOLECALCIFEROL (VIT D3) 1,000 UNIT TABLET PO SCH (08:17)
[2017-11-16] MEDS: SENNOSIDES/DOCUSATE SODIUM 1 EACH TABLET PO SCH ×2 (08:18→20:07)
[2017-11-16] MEDS: CYANOCOBALAMIN (VITAMIN B12) 1,000 MCG TABLET PO SCH (08:18)
[2017-11-16] MEDS: METOPROLOL TARTRATE 50 MG TABLET PO SCH ×2 (08:18→20:06)
[2017-11-16] MEDS: HYPROMELLOSE OPTH DROPS OP SCH ×2 (08:19→20:18)
[2017-11-16] MEDS: FLUTICASONE PROPIONATE 120 SPRAY/16 GR BOTTLE NS SCH (08:19)
[2017-11-16] MEDS: APIXABAN 2.5 MG TABLET PO SCH ×2 (08:19→20:06)
[2017-11-16] MEDS: SODIUM CHLORIDE NASAL SPRAY NS SCH ×4 (08:20→20:28)
[2017-11-16] MEDS: LOSARTAN POTASSIUM 50 MG TABLET PO SCH (08:22)
[2017-11-16] MEDS: ACETAMINOPHEN 325 MG TABLET PO PRN (18:17)
[2017-11-16] MEDS: LATANOPROST 0.005% OPTH DROP OP SCH (20:18)
[2017-11-17] MEDS: QUEtiapine FUMARATE 25 MG TABLET PO PRN ×2 (00:59→23:34)
[2017-11-17] MEDS: APIXABAN 2.5 MG TABLET PO SCH ×2 (09:52→20:04)
[2017-11-17] MEDS: HYDROCHLOROTHIAZIDE 25 MG TABLET PO SCH (09:53)
[2017-11-17] MEDS: CYANOCOBALAMIN (VITAMIN B12) 1,000 MCG TABLET PO SCH (09:53)
[2017-11-17] MEDS: METOPROLOL TARTRATE 50 MG TABLET PO SCH ×2 (09:54→20:08)
[2017-11-17] MEDS: SERTRALINE HCL 50 MG TABLET PO SCH (09:54)
[2017-11-17] MEDS: rOPINIRole HCL 1 MG TABLET PO SCH ×3 (09:55→17:35)
[2017-11-17] MEDS: FLUTICASONE PROPIONATE 120 SPRAY/16 GR BOTTLE NS SCH (09:55)
[2017-11-17] MEDS: SENNOSIDES/DOCUSATE SODIUM 1 EACH TABLET PO SCH ×2 (09:55→20:06)
[2017-11-17] MEDS: SODIUM CHLORIDE NASAL SPRAY NS SCH ×4 (09:56→20:06)
[2017-11-17] MEDS: CHOLECALCIFEROL (VIT D3) 1,000 UNIT TABLET PO SCH (09:56)
[2017-11-17] MEDS: HYPROMELLOSE OPTH DROPS OP SCH ×2 (09:56→20:05)
[2017-11-17] MEDS: LOSARTAN POTASSIUM 50 MG TABLET PO SCH (11:21)
[2017-11-17] MEDS: ACETAMINOPHEN 325 MG TABLET PO PRN (11:21)
[2017-11-17] MEDS: LATANOPROST 0.005% OPTH DROP OP SCH (20:06)
[2017-11-17] MEDS: BUSPIRONE HCL 5 MG TABLET PO PRN (20:09)
[2017-11-17] MEDS: MELATONIN 3 MG TABLET PO PRN (20:09)
[2017-11-18] MEDS: FLUTICASONE PROPIONATE 120 SPRAY/16 GR BOTTLE NS SCH (09:17)
[2017-11-18] MEDS: APIXABAN 2.5 MG TABLET PO SCH ×2 (09:18→20:28)
[2017-11-18] MEDS: CHOLECALCIFEROL (VIT D3) 1,000 UNIT TABLET PO SCH (09:19)
[2017-11-18] MEDS: rOPINIRole HCL 1 MG TABLET PO SCH ×3 (09:20→17:58)
[2017-11-18] MEDS: HYPROMELLOSE OPTH DROPS OP SCH ×2 (09:21→20:27)
[2017-11-18] MEDS: HYDROCHLOROTHIAZIDE 25 MG TABLET PO SCH (09:21)
[2017-11-18] MEDS: METOPROLOL TARTRATE 50 MG TABLET PO SCH ×2 (09:22→20:28)
[2017-11-18] MEDS: SODIUM CHLORIDE NASAL SPRAY NS SCH ×4 (09:22→20:27)
[2017-11-18] MEDS: SERTRALINE HCL 50 MG TABLET PO SCH (09:23)
[2017-11-18] MEDS: SENNOSIDES/DOCUSATE SODIUM 1 EACH TABLET PO SCH ×2 (09:23→20:27)
[2017-11-18] MEDS: CYANOCOBALAMIN (VITAMIN B12) 1,000 MCG TABLET PO SCH (09:23)
[2017-11-18] MEDS: LOSARTAN POTASSIUM 50 MG TABLET PO SCH (09:31)
[2017-11-18] MEDS: ACETAMINOPHEN 325 MG TABLET PO PRN (15:01)
[2017-11-18] MEDS: LATANOPROST 0.005% OPTH DROP OP SCH (20:26)
[2017-11-18] MEDS: MELATONIN 3 MG TABLET PO PRN (20:27)
[2017-11-18] MEDS: QUEtiapine FUMARATE 25 MG TABLET PO PRN (23:07)
[2017-11-19] MEDS: BUSPIRONE HCL 5 MG TABLET PO PRN ×2 (05:16→21:29)
[2017-11-19] MEDS: rOPINIRole HCL 1 MG TABLET PO SCH ×3 (08:23→17:37)
[2017-11-19] MEDS: FLUTICASONE PROPIONATE 120 SPRAY/16 GR BOTTLE NS SCH (08:23)
[2017-11-19] MEDS: HYDROCHLOROTHIAZIDE 25 MG TABLET PO SCH (08:24)
[2017-11-19] MEDS: HYPROMELLOSE OPTH DROPS OP SCH ×2 (08:24→20:15)
[2017-11-19] MEDS: SERTRALINE HCL 50 MG TABLET PO SCH (08:24)
[2017-11-19] MEDS: APIXABAN 2.5 MG TABLET PO SCH ×2 (08:25→20:14)
[2017-11-19] MEDS: SODIUM CHLORIDE NASAL SPRAY NS SCH ×4 (08:25→20:15)
[2017-11-19] MEDS: LOSARTAN POTASSIUM 50 MG TABLET PO SCH (08:25)
[2017-11-19] MEDS: CYANOCOBALAMIN (VITAMIN B12) 1,000 MCG TABLET PO SCH (08:25)
[2017-11-19] MEDS: SENNOSIDES/DOCUSATE SODIUM 1 EACH TABLET PO SCH ×2 (08:25→20:13)
[2017-11-19] MEDS: CHOLECALCIFEROL (VIT D3) 1,000 UNIT TABLET PO SCH (08:29)
[2017-11-19] MEDS: METOPROLOL TARTRATE 50 MG TABLET PO SCH ×2 (08:29→20:11)
[2017-11-19] MEDS: ACETAMINOPHEN 325 MG TABLET PO PRN ×2 (10:08→16:03)
[2017-11-19] MEDS: LATANOPROST 0.005% OPTH DROP OP SCH (20:16)
[2017-11-19] MEDS: MELATONIN 3 MG TABLET PO PRN (21:29)
[2017-11-19] MEDS: QUEtiapine FUMARATE 25 MG TABLET PO PRN (22:39)
[2017-11-20] MEDS: FLUTICASONE PROPIONATE 120 SPRAY/16 GR BOTTLE NS SCH (09:04)
[2017-11-20] MEDS: HYDROCHLOROTHIAZIDE 25 MG TABLET PO SCH (09:04)
[2017-11-20] MEDS: METOPROLOL TARTRATE 50 MG TABLET PO SCH ×2 (09:05→20:34)
[2017-11-20] MEDS: HYPROMELLOSE OPTH DROPS OP SCH ×2 (09:05→20:33)
[2017-11-20] MEDS: SODIUM CHLORIDE NASAL SPRAY NS SCH ×4 (09:05→20:34)
[2017-11-20] MEDS: CYANOCOBALAMIN (VITAMIN B12) 1,000 MCG TABLET PO SCH (09:06)
[2017-11-20] MEDS: SENNOSIDES/DOCUSATE SODIUM 1 EACH TABLET PO SCH ×2 (09:06→20:34)
[2017-11-20] MEDS: CHOLECALCIFEROL (VIT D3) 1,000 UNIT TABLET PO SCH (09:06)
[2017-11-20] MEDS: SERTRALINE HCL 50 MG TABLET PO SCH (09:07)
[2017-11-20] MEDS: rOPINIRole HCL 1 MG TABLET PO SCH ×3 (09:07→17:46)
[2017-11-20] MEDS: APIXABAN 2.5 MG TABLET PO SCH ×2 (09:09→20:32)
[2017-11-20] MEDS: LOSARTAN POTASSIUM 50 MG TABLET PO SCH (09:09)
[2017-11-20] MEDS: ACETAMINOPHEN 325 MG TABLET PO PRN (13:40)
[2017-11-20] MEDS: MELATONIN 3 MG TABLET PO PRN (20:33)
[2017-11-20] MEDS: BUSPIRONE HCL 5 MG TABLET PO PRN (20:33)
[2017-11-20] MEDS: LATANOPROST 0.005% OPTH DROP OP SCH (20:34)
[2017-11-20] MEDS: QUEtiapine FUMARATE 25 MG TABLET PO PRN (22:47)
[2017-11-21] MEDS: APIXABAN 2.5 MG TABLET PO SCH ×2 (08:27→20:49)
[2017-11-21] MEDS: HYPROMELLOSE OPTH DROPS OP SCH ×2 (08:27→20:50)
[2017-11-21] MEDS: rOPINIRole HCL 1 MG TABLET PO SCH ×3 (08:27→17:20)
[2017-11-21] MEDS: METOPROLOL TARTRATE 50 MG TABLET PO SCH ×2 (08:28→20:49)
[2017-11-21] MEDS: LOSARTAN POTASSIUM 50 MG TABLET PO SCH (08:29)
[2017-11-21] MEDS: HYDROCHLOROTHIAZIDE 25 MG TABLET PO SCH (08:29)
[2017-11-21] MEDS: SENNOSIDES/DOCUSATE SODIUM 1 EACH TABLET PO SCH ×2 (08:29→20:50)
[2017-11-21] MEDS: SERTRALINE HCL 50 MG TABLET PO SCH (08:30)
[2017-11-21] MEDS: CYANOCOBALAMIN (VITAMIN B12) 1,000 MCG TABLET PO SCH (08:30)
[2017-11-21] MEDS: CHOLECALCIFEROL (VIT D3) 1,000 UNIT TABLET PO SCH (08:30)
[2017-11-21] MEDS: FLUTICASONE PROPIONATE 120 SPRAY/16 GR BOTTLE NS SCH (08:31)
[2017-11-21] MEDS: SODIUM CHLORIDE NASAL SPRAY NS SCH ×4 (08:31→20:50)
[2017-11-21] MEDS: ACETAMINOPHEN 325 MG TABLET PO PRN (15:14)
[2017-11-21] MEDS: BUSPIRONE HCL 5 MG TABLET PO PRN (20:49)
[2017-11-21] MEDS: QUEtiapine FUMARATE 25 MG TABLET PO PRN (20:49)
[2017-11-21] MEDS: LATANOPROST 0.005% OPTH DROP OP SCH (20:51)
[2017-11-22] MEDS: ACETAMINOPHEN 325 MG TABLET PO PRN ×3 (01:56→23:07)
[2017-11-22] MEDS: MELATONIN 3 MG TABLET PO PRN ×2 (01:56→23:07)
[2017-11-22] MEDS: CHOLECALCIFEROL (VIT D3) 1,000 UNIT TABLET PO SCH (08:26)
[2017-11-22] MEDS: SERTRALINE HCL 50 MG TABLET PO SCH (08:27)
[2017-11-22] MEDS: SENNOSIDES/DOCUSATE SODIUM 1 EACH TABLET PO SCH ×2 (08:27→21:11)
[2017-11-22] MEDS: CYANOCOBALAMIN (VITAMIN B12) 1,000 MCG TABLET PO SCH (08:28)
[2017-11-22] MEDS: HYDROCHLOROTHIAZIDE 25 MG TABLET PO SCH (08:29)
[2017-11-22] MEDS: APIXABAN 2.5 MG TABLET PO SCH ×2 (08:29→21:10)
[2017-11-22] MEDS: rOPINIRole HCL 1 MG TABLET PO SCH ×3 (08:30→17:42)
[2017-11-22] MEDS: LOSARTAN POTASSIUM 50 MG TABLET PO SCH (08:30)
[2017-11-22] MEDS: METOPROLOL TARTRATE 50 MG TABLET PO SCH ×2 (08:30→21:11)
[2017-11-22] MEDS: SODIUM CHLORIDE NASAL SPRAY NS SCH ×4 (08:31→21:11)
[2017-11-22] MEDS: FLUTICASONE PROPIONATE 120 SPRAY/16 GR BOTTLE NS SCH (08:31)
[2017-11-22] MEDS: HYPROMELLOSE OPTH DROPS OP SCH ×2 (08:31→21:11)
[2017-11-22] MEDS: BUSPIRONE HCL 5 MG TABLET PO PRN (17:06)
[2017-11-22] MEDS: LATANOPROST 0.005% OPTH DROP OP SCH (21:11)
[2017-11-22] MEDS: QUEtiapine FUMARATE 25 MG TABLET PO PRN (21:16)
[2017-11-23] MEDS: BUSPIRONE HCL 5 MG TABLET PO PRN (03:41)
[2017-11-23] MEDS: APIXABAN 2.5 MG TABLET PO SCH ×2 (09:09→20:50)
[2017-11-23] MEDS: LOSARTAN POTASSIUM 50 MG TABLET PO SCH (09:09)
[2017-11-23] MEDS: HYDROCHLOROTHIAZIDE 25 MG TABLET PO SCH (09:10)
[2017-11-23] MEDS: FLUTICASONE PROPIONATE 120 SPRAY/16 GR BOTTLE NS SCH (09:10)
[2017-11-23] MEDS: METOPROLOL TARTRATE 50 MG TABLET PO SCH ×2 (09:11→20:48)
[2017-11-23] MEDS: SODIUM CHLORIDE NASAL SPRAY NS SCH ×4 (09:12→20:49)
[2017-11-23] MEDS: rOPINIRole HCL 1 MG TABLET PO SCH ×3 (09:12→17:40)
[2017-11-23] MEDS: HYPROMELLOSE OPTH DROPS OP SCH ×2 (09:12→20:49)
[2017-11-23] MEDS: CYANOCOBALAMIN (VITAMIN B12) 1,000 MCG TABLET PO SCH (09:13)
[2017-11-23] MEDS: SENNOSIDES/DOCUSATE SODIUM 1 EACH TABLET PO SCH ×2 (09:13→20:48)
[2017-11-23] MEDS: CHOLECALCIFEROL (VIT D3) 1,000 UNIT TABLET PO SCH (09:14)
[2017-11-23] MEDS: SERTRALINE HCL 50 MG TABLET PO SCH (09:14)
[2017-11-23] MEDS ORDERED: QUEtiapine FUMARATE 25 MG TABLET PO ONE ×2 (17:45→23:39)
[2017-11-23] MEDS: QUEtiapine FUMARATE 25 MG TABLET PO SCH (17:48)
[2017-11-23] MEDS: LATANOPROST 0.005% OPTH DROP OP SCH (20:48)
[2017-11-24] MEDS: BUSPIRONE HCL 5 MG TABLET PO PRN (04:42)
--- NOTE | 2017-11-24 07:30 | Discharge Summary ---
Discharge Summary - Discharge Sumary History of Present Illness: Patient was admitted to [facility] earlier this week with worsening Parkinson's. She had gotten to the point where she was unable to walk on her own. Work up at [facility] was negative. Neurology believed she had gotten her medication mixed up. She is on sinemet 5 times a day - they feel she is getting some early dementia and is unable to remember to take her meds. However, they did not change this. She had issues with poor sleep while there - up every night until last night when she slept great. New medication includes seroquel at night. She did have an episode of edema - thought to have some fluid overload - treated with lasix. She feels good today. reports she is doing much better. He is unable to help her at home due to his chronic health condition. She will be admitted for SNF for PT/OT to strengthen her to get her back home. I will also ask speech to see her to work on cognitive training. Condition at Discharge: Stable Home Medications: Ambulatory Orders Medication Instructions Recorded Carbidopa/Levodopa [Carbidopa-Levo 2 tab PO [id number] 02/15/15 25-100 mg Odt] Cholecalciferol [Vitamin D-3] 1,000 unit PO DAILY 11/04/17 Cyanocobalamin (Vitamin B-12) 500 mcg PO DAILY 11/04/17 [Vitamin B-12] Fluticasone Propionate [Flonase] 1 spray NS DAILY PRN 11/04/17 [place]-3S/Dha/Epa/Fish Oil [[place]-3 1 each PO DAILY 11/04/17 Fish Oil 1,000 mg Sfgl] Sennosides/Docusate Sodium 1 each PO BID 11/04/17 [Docusate Sodium-Senna Tablet] QUEtiapine FUMARATE [Seroquel] 12.5 mg PO BID #30 tablet 11/23/17 Consultations this Visit: None Procedures this Visit: None Allergies/Adverse Reactions: Allergies Allergy/AdvReac Type Severity Reaction Status Date / Time Ybprtwv-Szt-Exj Reductase Allergy Verified 11/04/17 19:37 Inhibitor Discharge Summary: Patient did well in SNF after acute hospital stay for weakness from parkinson's and anxiety. We did end up increasing her seroquel to 25 mg bid prior to d/c due to anxiety. She is also on sertraline which will likely have to be increased in the future. She had some issues with confusion while in the hospital - [facility] notes dementia. Will watch her closely as outpatient. [employer] Mechan[employer] worked hard to get her with plenty of in home services upon discharge. Hospital Course: Discharge Dx: WEakness. Parkinson's. Anxiety. HTN. Disp - home with home health
[2017-11-24] MEDS ORDERED: ACETAMINOPHEN 325 MG TABLET PO ONE (08:17)
[2017-11-24] MEDS: APIXABAN 2.5 MG TABLET PO SCH (08:20)
[2017-11-24] MEDS: rOPINIRole HCL 1 MG TABLET PO SCH (08:26)
[2017-11-24] MEDS: SENNOSIDES/DOCUSATE SODIUM 1 EACH TABLET PO SCH (08:28)
[2017-11-24] MEDS: LOSARTAN POTASSIUM 50 MG TABLET PO SCH (08:28)
[2017-11-24] MEDS: METOPROLOL TARTRATE 50 MG TABLET PO SCH (08:28)
[2017-11-24] MEDS: CYANOCOBALAMIN (VITAMIN B12) 1,000 MCG TABLET PO SCH (08:29)
[2017-11-24] MEDS: HYDROCHLOROTHIAZIDE 25 MG TABLET PO SCH (08:29)
[2017-11-24] MEDS: CHOLECALCIFEROL (VIT D3) 1,000 UNIT TABLET PO SCH (08:29)
[2017-11-24] MEDS: SERTRALINE HCL 50 MG TABLET PO SCH (08:30)
[2017-11-24] MEDS: ACETAMINOPHEN 325 MG TABLET PO PRN (08:30)
[2017-11-24] MEDS: HYPROMELLOSE OPTH DROPS OP SCH (08:31)
[2017-11-24] MEDS: FLUTICASONE PROPIONATE 120 SPRAY/16 GR BOTTLE NS SCH (08:37)
[2017-11-24] MEDS: SODIUM CHLORIDE NASAL SPRAY NS SCH (08:38)
[2017-11-24 08:47] VITALS: BP 157/101
[2017-11-24] MEDS: QUEtiapine FUMARATE 25 MG TABLET PO SCH (09:56)
== END 2017-11-24 10:34 | disposition home health service (06) | DRG 948 ==
LOC: SOUTH 15:12
PROVIDERS: ADMIT Family Medicine; ATTEND Family Medicine
DX: R53.1 Weakness (principal); G20 Parkinson's disease; I48.91 Unspecified atrial fibrillation; I10 Essential (primary) hypertension; E11.9 Type 2 diabetes mellitus without complications

== ENCOUNTER 2018-02-20 15:57 | Outpatient (CLI) | payer OTHER ==
[2018-02-20 16:08] LABS: MEAN CORPUSCULAR HEMOGLOBIN 30.5 pg (28.0-34.0); MEAN CORPUSCULAR VOLUME 88.1 fl (80.0-100.0)
[2018-02-20 16:11] LABS: APPEARANCE,URINE CLEAR (CLEAR); COLOR,URINE YELLOW (YELLOW); OCCULT BLOOD,URINE TRACE-INTACT (NEGATIVE); UROBILINOGEN URINE 0.2 Eu (0.2-1.0)
[2018-02-20 16:19] LABS: eGFR (African) > 60; eGFR (Non-African) > 60
== END 2018-02-20 16:00 ==
LOC: LABRHC 15:57
PROVIDERS: ATTEND Family Medicine
DX: E11.9 Type 2 diabetes mellitus without complications (principal); R53.1 Weakness
CPT/HCPCS: 80053; 81002; 83036; 85027; 87086

== ENCOUNTER 2018-04-30 16:33 | Emergency (ER) | payer OTHER ==
[2018-04-30 16:56] LABS: BASOPHILS % 0.4 (0.0-1.5); EOSINOPHILS % 3.3 % (0.0-6.8); MEAN CORPUSCULAR HEMOGLOBIN 30.2 pg (28.0-34.0); MEAN CORPUSCULAR VOLUME 90.5 fl (80.0-100.0); MONOCYTES % 4.7 % (0.0-11.0); NEUTROPHILS # 6.5 # k/uL (1.4-7.7)
[2018-04-30 17:07] LABS: eGFR (Non-African) > 60
--- NOTE | 2018-04-30 17:49 | Diagnostic Imaging Report ---
EDMAR NICOLE (BUSINESS EXCELLENCE MANAGER) - ER [facility] [address] [facility].[address] [address] Report Submission Date: Apr 30, 2018 5:43:54 PM CDT Patient Study Name: ELLA DAVALOS Date: Apr 30, 2018 5:06:20 PM CDT Modality Type: DX Gender: F Description: CHEST,ABDOMEN : 40 Institution: [facility] Physician: EDMAR NICOLE (BUSINESS EXCELLENCE MANAGER) - ER Abdomen series with chest radiograph History: Shortness of breath, abdominal distention Findings: Included chest radiograph demonstrates no active pulmonary disease. There is a large amount of retained fecal material throughout the colon. Bowel gas pattern is normal. There is no obstruction, free intraperitoneal air or pathologic calcification. Impression: Constipation. Electronically signed on Apr 30, 2018 5:43:54 PM CDT by: Kahlil DAVILA
[2018-04-30] MEDS: MAGNESIUM CITRATE 296 ML BOTTLE PO ONE (17:50)
--- NOTE | 2018-04-30 17:57 | ED Physician Documentation ---
General Adult - HISTORIAN Historian: patient - HPI Stated Complaint: Shortness of Breath/Distended Abdomen Chief Complaint: General Adult Further Comments: yes (78 year old female patient presents with complaint of abdominal pain and dyspnea. Reports hard, firm small amount of stool this morning.) - ROS CONST: no problems EYES/ENT: none CVS/RESP: shortness of breath GI/: abdominal pain MS/SKIN/LYMPH: none NEURO/PSYCH: denies: headache - PAST HX Past History: other (Parkinson's, A Fib, depression) Allergies/Adverse Reactions: Allergies Allergy/AdvReac Type Severity Reaction Status Date / Time Mdswvsx-Lhj-Wjx Reductase Allergy Verified 11/04/17 19:37 Inhibitor Home Medications: Ambulatory Orders Medication Instructions Recorded Carbidopa/Levodopa [Carbidopa-Levo 2 tab PO [id number] 02/15/15 25-100 mg Odt] Cholecalciferol [Vitamin D-3] 1,000 unit PO DAILY 11/04/17 Cyanocobalamin (Vitamin B-12) 500 mcg PO DAILY 11/04/17 [Vitamin B-12] [place]-3S/Dha/Epa/Fish Oil [[place]-3 1 each PO DAILY 11/04/17 Fish Oil 1,000 mg Sfgl] Apixaban [Eliquis] 5 mg PO BID 04/30/18 Sertraline HCl 25 mg PO DAILY 04/30/18 - SOCIAL HX Smoking History: non-smoker - FAMILY HX Family History: No - VITAL SIGNS Vital Signs: Vital Signs Temp Pulse Resp BP Pulse Ox 97.1 F L 73 16 136/61 95 04/30/18 16:35 04/30/18 17:30 04/30/18 16:35 04/30/18 16:35 04/30/18 17:30 - REVIEWED ASSESSMENTS Nursing Assessment Reviewed: Yes Vitals Reviewed: Yes Progress - Progress Progress: 1 bottle of Magnesium citrate drank in ER. Reviewed discharge instructions with patient and . Verbalized understanding. ED Results Lab/Radiology - Lab Results Lab Results: Lab Results 04/30/18 04/30/18 04/30/18 16:50 16:50 16:49 WBC Pending RBC 5.09 M/ul M/ul (3.90-5.20) Hgb 15.4 g/dL g/dL (12.0-16.0) Hct 46.0 % % (34.5-46.5) MCV 90.5 fl fl (80.0-100.0) MCH 30.2 pg pg (28.0-34.0) MCHC 33.4 g/dL g/dL (30.0-36.0) RDW 14.4 % H % (11.3-14.3) Plt Count 246 K/mm3 K/mm3 (130-400) Neut % (Auto) 75.4 % % (39.0-79.0) Lymph % (Auto) 14.9 % L % (16.0-50.0) [place] % (Auto) 4.7 % % (0.0-11.0) Eos % (Auto) 3.3 % % (0.0-6.8) Baso % (Auto) 0.4 (0.0-1.5) Neut # (Auto) 6.5 # k/uL # k/uL (1.4-7.7) Lymph # (Auto) 1.3 # k/uL # k/uL (0.6-4.0) [place] # (Auto) 0.4 # k/uL # k/uL (0.0-0.9) Eos # (Auto) 0.3 # k/uL # k/uL (0.0-0.6) Baso # (Auto) 0.0 # k/uL # k/uL (0.0-0.5) Reactive Lymphs % 1.3 % % (0.0-5.0) Reactive Lymphs # 0.1 # k/uL # k/uL (0.0-0.8) Sodium 136 mmol/L mmol/L (136-145) Potassium 4.0 mmol/L mmol/L (3.5-5.1) Chloride 101 mmol/L mmol/L (98-107) Carbon Dioxide 29 mmol/L mmol/L (22-30) BUN 21 mg/dL H mg/dL (7-17) Creatinine 0.70 mg/dL mg/dL (0.52-1.04) Estimated Creat Clear 111 Est GFR ( Amer) > 60 (60 - ) Est GFR (Non-Af Amer) > 60 (60 - ) Glucose 128 mg/dL H mg/dL (74-106) Calcium 9.1 mg/dL mg/dL (8.4-10.2) Total Bilirubin 0.3 mg/dL mg/dL (0.2-1.3) AST 16 U/L U/L (15-46) ALT 7 U/L L U/L (13-69) Alkaline Phosphatase 99 U/L U/L (38-126) Creatine Kinase < 20 U/L L U/L (30-135) Troponin I < 0.03 ng/mL L ng/mL (0.03-0.06) Total Protein 7.1 g/dL g/dL (6.3-8.2) Albumin 4.1 g/dL g/dL (3.5-5.0) - Radiology Radiology Impressions: Abdomen series with chest radiograph History: Shortness of breath, abdominal distention Findings: Included chest radiograph demonstrates no active pulmonary disease. There is a large amount of retained fecal material throughout the colon. Bowel gas pattern is normal. There is no obstruction, free intraperitoneal air or pathologic calcification. Impression: Constipation. Electronically signed on Apr 30, 2018 5:43:54 PM CDT by: Kahlil De La Torre - Orders Orders: ED Orders Category Date Time Status Continuous EKG monitoring Q30M Care 04/30/18 16:43 Active Continuous Pulse Oximetry Q30M Care 04/30/18 16:[address] IV Lock 1T Care 04/30/18 16:43 Active ABD SERIES PA CHEST [RAD] Stat Exams 04/30/18 Completed CBC/PLATELET/DIFF Routine Lab 04/30/18 16:50 Results CMP Routine Lab 04/30/18 16:50 Completed CREATINE KINASE Routine Lab 04/30/18 16:50 Completed TROPONIN I (cTnI) Stat Lab 04/30/18 16:49 Completed Magnesium Citrate [Citrate of Magnesia] Med 04/30/18 17:45 Discontinued 296 ml PO NOW ONE EKG WITH COMPARISON Stat Ther 04/30/18 16:43 Ordered General Adult Physical Exam - PHYSICAL EXAM GENERAL APPEARANCE: [id number] N EENT: eye inspection normal, no signs of dehydration, DALILA RESPIRATORY: no resp distress, chest non-tender, breath sounds normal CVS: heart sounds normal, equal pulses, no murmur, no gallop, PMI nml, no JVD, no friction rub, irregularly irregular rhy ABDOMEN: soft, no organomegaly, no abdominal bruit, no distension, decreased BS BACK: normal inspection, no CVA tenderness SKIN: normal color, warm/dry, NR, INT, PAL, DR EXTREMITIES: non-tender, normal range of motion, no evidence of injury, no edema, J, SURGICAL SCRUB TECH NEURO: oriented X3, CN's nml as tested, motor nml, sensation nml, mood/affect nml Discharge Clincal Impression: Constipation Qualifiers: Constipation type: unspecified constipation type Qualified Code(s): K59.00 - Constipation, unspecified Referrals: Azalia Hernandez MD [Primary Care Provider] - 2 Days Additional Instructions: Repeat 1/2 bottle of magnesium citrate in the morning if you are not completely cleaned out. Repeat 1/2 bottle in the after at 6pm if not completely cleaned out. Constipation Increase the amount ofhigh-fiber foodsin your diet. Choose more whole grain breads, cereals and rice. Select more raw fruits and vegetables -- eat the peel, if appropriate. Drink six to eight glasses of water each day. Limit highly refined and processed foods. Over the counter Laxative as needed Gas-ex, simethicone, or beano as needed per package directions for gas pain Condition: Stable Disposition: 01 HOME, SELF-CARE Decision to Admit: NO Decision Time: 17:55
[2018-04-30 19:26] VITALS: BP 125/69
== END 2018-04-30 18:23 | disposition home or self-care (01) ==
LOC: ED 16:33
DX: K59.00 Constipation, unspecified (principal); R06.02 Shortness of breath
CPT/HCPCS: 74022; 80053; 82550; 84484; 85025; S1016

== ENCOUNTER 2018-05-18 08:58 | Emergency (ER) | payer OTHER ==
--- NOTE | 2018-05-18 09:38 | ED Physician Documentation ---
General Adult - HISTORIAN Historian: patient - HPI Stated Complaint: hot/cold at night mostly Chief Complaint: General Adult Onset: other (possibly two weeks ago when this started ) Timing: still present Severity: mild Further Comments: yes (She reports she has issues at night "when my head hits the pillow I am out" although states she is stating she is cold then sweats then she is complaining she is hot and he is not sure what is going on. He states they have discussed this with neurologist and Dr Hernandez and he was told to stop the "little pink pill" and he did stop that med two days ago. She and he are not sure if the symtpoms were helped with this med change. She denies any SOA, no chest pain, she does report some sinus pressure (although not today) and no weakness that is new.) - ROS CONST: sweating EYES/ENT: denies: problems with vision, sore throat, nasal drainage, nasal congestion CVS/RESP: denies: chest pain, shortness of breath, cough GI/: denies: abdominal pain, problems urinating, vomiting, nausea, diarrhea MS/SKIN/LYMPH: denies: neck pain, joint pain, rash NEURO/PSYCH: denies: headache, fainting, dizziness, tingling, numbness, difficulty walking, difficulty with speech, anxiety, depression - PAST HX Past History: A-Fib, other (parkinson's ) Other History: diabetes Type 2 Immunizations: UTD Allergies/Adverse Reactions: Allergies Allergy/AdvReac Type Severity Reaction Status Date / Time Pndtncr-Hpv-Grg Reductase Allergy Verified 05/18/18 09:47 Inhibitor Home Medications: Ambulatory Orders Medication Instructions Recorded Carbidopa/Levodopa [Carbidopa-Levo 2 tab PO [id number] 02/15/15 25-100 mg Odt] Cholecalciferol [Vitamin D-3] 1,000 unit PO DAILY 11/04/17 Cyanocobalamin (Vitamin B-12) 500 mcg PO DAILY 11/04/17 [Vitamin B-12] [place]-3S/Dha/Epa/Fish Oil [[place]-3 1 each PO DAILY 11/04/17 Fish Oil 1,000 mg Sfgl] Apixaban [Eliquis] 5 mg PO BID 04/30/18 Sertraline HCl 25 mg PO DAILY 09/02/18 - SOCIAL HX Smoking History: non-smoker Alcohol Use: none Drug Use: none - FAMILY HX Family History: No - VITAL SIGNS Vital Signs: Vital Signs Temp Pulse Resp BP Pulse Ox 125/69 04/30/18 19:17 - REVIEWED ASSESSMENTS Nursing Assessment Reviewed: Yes Vitals Reviewed: Yes Progress - Progress Progress: 1150: Discussed case with Dr Hernandez and plan with pt and spouse. They are agreeable DG ED Results Lab/Radiology - Radiology Radiology Impressions: Examination: PA and lateral chest. History: Evaluate lung tapia. CXR, WEAKNESS, WORSENING IN THE LAST FEW WEEKS. PT STATES HX OF PARKINSONS DISEASE (Hx) Comparison exam: 30 April 2018 and 27 April 2017 Findings: PA and lateral views of the chest demonstrates a normal cardiac and mediastinal silhouette. Tortuous aorta. Prominent hilar vasculature No focal infiltrate. No blunting of the costophrenic margins. Osseous structures are appropriate for age. Impression: No acute pulmonary process. Electronically signed on May 18, 2018 10:17:23 AM CDT by: Tom Nicholas General Adult Physical Exam - PHYSICAL EXAM GENERAL APPEARANCE: no distress EENT: eye inspection normal, ENT inspection normal NECK: normal inspection RESPIRATORY: no resp distress, chest non-tender, breath sounds normal CVS: reg rate & rhythm, heart sounds normal, equal pulses, no murmur ABDOMEN: soft, normal bowel sounds, no distension, non-tender BACK: normal inspection, no CVA tenderness SKIN: warm/dry, normal color EXTREMITIES: non-tender, normal range of motion, no evidence of injury, no edema NEURO: oriented X3, CN's nml as tested, motor nml, sensation nml, mood/affect nml, cognition normal Discharge Clincal Impression: Weakness Referrals: Azalia Hernandez MD [Primary Care Provider] - 2 Days Comments: 1. Continue meds 2. follow up with Neurology 3. Increase fluids 4. return for any concerns 5. Dr Hernandez will call with thyroid labs Condition: Stable Disposition: 01 HOME, SELF-CARE Decision to Admit: NO Date of Decison to Admit: 05/18/18 Decision Time: 11:49
[2018-05-18 10:16] LABS: eGFR (Non-African) > 60
[2018-05-18] MEDS ORDERED: 0.9 % SODIUM CHLORIDE 1,000 ML IV ONE (11:03)
[2018-05-18] MEDS ORDERED: SERTRALINE HCL 50 MG TABLET ONE (11:28)
[2018-05-18 11:41] LABS: BASO % 0.6 % (0.0-1.5); EOS % 3.2 % (0.0-6.8); LYMPH ABS # 1.48 thou/uL (0.60-4.00); MCH. 29.5 pg (28.0-34.0); MCV 89.9 fL (80.0-100.0); MONOCYTE % 5.4 % (0.0-11.0); MONOCYTE ABS # 0.43 thou/uL (0.00-0.90); PLATELET COUNT 218 thou/uL (130-400)
[2018-05-18] MEDS ORDERED: SERTRALINE HCL 50 MG TABLET PO SCH (12:00)
[2018-05-18 13:28] VITALS: BP 176/88
[2018-05-18 18:00] LABS: APPEARANCE,URINE CLEAR (CLEAR); COLOR,URINE YELLOW (YELLOW); OCCULT BLOOD,URINE NEGATIVE (NEGATIVE); UROBILINOGEN URINE 0.2 Eu (0.2-1.0)
--- NOTE | 2018-05-18 19:52 | Diagnostic Imaging Report ---
DEIRDRE QUESADA [facility] [id number] [facility] [address] [place], [place]. [address] Report Submission Date: May 18, 2018 10:17:23 AM CDT Patient Study Name: ELLA DAVALOS Date: May 18, 2018 9:48:22 AM CDT Modality Type: DX Gender: F Description: CHEST : 40 Institution: [facility] Physician: DEIRDRE QUESADA Examination: PA and lateral chest. History: Evaluate lung atpia. CXR, WEAKNESS, WORSENING IN THE LAST FEW WEEKS. PT STATES HX OF PARKINSONS DISEASE (Hx) Comparison exam: 30 April 2018 and 27 April 2017 Findings: PA and lateral views of the chest demonstrates a normal cardiac and mediastinal silhouette. Tortuous aorta. Prominent hilar vasculature No focal infiltrate. No blunting of the costophrenic margins. Osseous structures are appropriate for age. Impression: No acute pulmonary process. Electronically signed on May 18, 2018 10:17:23 AM CDT by: Tom DAVILA
== END 2018-05-18 12:40 | disposition home or self-care (01) ==
LOC: ED 08:58
DX: R53.1 Weakness (principal); G20 Parkinson's disease; R61 Generalized hyperhidrosis
CPT/HCPCS: 71046; 80053; 81002; 84439; 84443; 84481; 84484; 85025; J7030; 93005; 96365; S1016